=== PATIENT | male | born 1980 | race Caucasian/White ===

== ENCOUNTER 2024-11-08 06:50 | Inpatient (IN) | payer OTHER ==
[~2024-11-08] VITALS: Ht 185.4 cm; Wt 79.5 kg
[2024-11-08 07:54] LABS: PLATELET COUNT (AUTO) 266 K/uL (150-450); RED BLOOD CELL COUNT(AUTO) 4.80 MIL/uL (4.50-5.90); RED CELL DISTRIBUTION WIDTH 14.1 % (11.5-14.5); WHITE BLOOD COUNT (AUTO) 7.1 K/uL (4.5-11.0)
[2024-11-08 07:59] LABS: CALCIUM, TOTAL 9.5 mg/dL (8.8-10.5); CREATININE 0.78 mg/dL (0.60-1.30); GLOMERULAR FILTR. RATE CALC > 60 mL/min (>60); GLUCOSE,RANDOM 106 mg/dL (70-110); SODIUM SERUM 138 mmol/L (136-145); UREA NITROGEN, BLOOD 18 mg/dL (7-18)
[2024-11-08] MEDS: SODIUM CHLORIDE 0.9% 1,000 ML IV ONE (09:06)
[2024-11-08 10:37] LABS: APPEARANCE,URINE HAZY (CLEAR); GLUCOSE, URINE (UA) NEGATIVE (NEGATIVE); LEUKOCYTE ESTERASE ,URINE NEGATIVE (NEGATIVE); NITRATE,URINE NEGATIVE (NEGATIVE); OCCULT BLOOD,URINE NEGATIVE (NEGATIVE); PH,URINE DRUG SCREEN 7.5 (5.0-8.0); SPECIFIC GRAVITIY, URINE 1.032 (1.003-1.030)
[2024-11-08 10:38] LABS: ALCOHOL, URINE DRUG SCREEN NEGATIVE (NEGATIVE); AMPHET/METH SCREEN,URINE POSITIVE (NEGATIVE); BARBITURATE SCREEN, URINE NEGATIVE (NEGATIVE); CANNABINOID SCREEN,URINE NEGATIVE (NEGATIVE); COCAINE SCREEN,URINE NEGATIVE (NEGATIVE); METHADONE SCREEN, URINE NEGATIVE (NEGATIVE)
[2024-11-08 10:52] LABS: AMORPHOUS SEDIMENT,UR Few /LPF (None Seen); SQUAMOUS EPITHELIAL CELL,UR Few /LPF (None Seen)
[2024-11-08 12:00] VITALS: BP 123/79; PULSE 72; RESP 18; TEMP 97.8; O2SAT 99
[2024-11-08] MEDS: BUPRENORPHINE HCL/NALOXONE HCL 8-2 MG SUBLINGUAL TABLET SL ONE (13:20)
[2024-11-08] MEDS ORDERED: LOPERAMIDE HCL 2 MG CAPSULE PO PRN (14:15)
[2024-11-08] MEDS ORDERED: METOCLOPRAMIDE HCL 5 MG/ML 2 ML VIAL IVP PRN (14:15)
[2024-11-08] MEDS ORDERED: DICYCLOMINE HCL 10 MG CAPSULE PO PRN (14:15)
[2024-11-08 16:00] VITALS: BP 115/78; PULSE 66; RESP 18; TEMP 97.7; O2SAT 100
[2024-11-08 19:35] VITALS: BP 112/75; PULSE 72; RESP 18; TEMP 98.2; O2SAT 100
[2024-11-08] MEDS: TEMAZEPAM 15 MG CAPSULE PO SCH (20:45)
[2024-11-09 04:49] VITALS: BP 113/84; PULSE 68; RESP 18; TEMP 98.2; O2SAT 98
[2024-11-09 07:16] LABS: PLATELET COUNT (AUTO) 264 K/uL (150-450); RED BLOOD CELL COUNT(AUTO) 4.76 MIL/uL (4.50-5.90); RED CELL DISTRIBUTION WIDTH 14.5 % (11.5-14.5); WHITE BLOOD COUNT (AUTO) 7.4 K/uL (4.5-11.0)
[2024-11-09 07:29] LABS: CALCIUM, TOTAL 8.9 mg/dL (8.8-10.5); CREATININE 0.74 mg/dL (0.60-1.30); GLOMERULAR FILTR. RATE CALC > 60 mL/min (>60); GLUCOSE,RANDOM 91 mg/dL (70-110); SODIUM SERUM 141 mmol/L (136-145); UREA NITROGEN, BLOOD 17 mg/dL (7-18)
[2024-11-09 07:35] VITALS: BP 114/80; PULSE 67; RESP 18; TEMP 98.2; O2SAT 98
[2024-11-09 20:20] VITALS: BP 116/67; PULSE 65; RESP 18; TEMP 97.5; O2SAT 97
[2024-11-09] MEDS: LORazepam 2 MG/ML VIAL IVP PRN (20:24)
[2024-11-10 04:29] VITALS: BP 111/87; PULSE 70; RESP 16; TEMP 97.6; O2SAT 98
[2024-11-10 06:53] LABS: PLATELET COUNT (AUTO) 251 K/uL (150-450); RED BLOOD CELL COUNT(AUTO) 4.86 MIL/uL (4.50-5.90); RED CELL DISTRIBUTION WIDTH 14.2 % (11.5-14.5); WHITE BLOOD COUNT (AUTO) 7.1 K/uL (4.5-11.0)
[2024-11-10 07:03] LABS: CALCIUM, TOTAL 9.0 mg/dL (8.8-10.5); CREATININE 0.69 mg/dL (0.60-1.30); GLOMERULAR FILTR. RATE CALC > 60 mL/min (>60); GLUCOSE,RANDOM 94 mg/dL (70-110); SODIUM SERUM 137 mmol/L (136-145); UREA NITROGEN, BLOOD 18 mg/dL (7-18)
[2024-11-10 08:19] VITALS: BP 108/80; PULSE 68; RESP 18; TEMP 98.1; O2SAT 100
[2024-11-10 15:44] VITALS: BP 102/77; PULSE 75; RESP 18; TEMP 98.4; O2SAT 100
[2024-11-10 19:38] VITALS: BP 98/61; PULSE 88; RESP 18; TEMP 97.3; O2SAT 97
[2024-11-11 05:03] VITALS: BP 111/82; PULSE 68; RESP 18; TEMP 97.7; O2SAT 95
[2024-11-11 07:37] LABS: CALCIUM, TOTAL 8.7 mg/dL (8.8-10.5); CREATININE 0.82 mg/dL (0.60-1.30); GLOMERULAR FILTR. RATE CALC > 60 mL/min (>60); GLUCOSE,RANDOM 91 mg/dL (70-110); PLATELET COUNT (AUTO) 268 K/uL (150-450); RED BLOOD CELL COUNT(AUTO) 4.85 MIL/uL (4.50-5.90); RED CELL DISTRIBUTION WIDTH 14.2 % (11.5-14.5); SODIUM SERUM 139 mmol/L (136-145); UREA NITROGEN, BLOOD 14 mg/dL (7-18); WHITE BLOOD COUNT (AUTO) 6.8 K/uL (4.5-11.0)
[2024-11-11 08:16] VITALS: BP 116/81; PULSE 72; RESP 20; TEMP 97.7; O2SAT 98
[2024-11-11 16:25] VITALS: BP 109/73; PULSE 68; RESP 18; TEMP 98.1; O2SAT 98
[2024-11-11 19:41] VITALS: BP 105/73; PULSE 87; RESP 18; TEMP 98.1; O2SAT 97
[2024-11-12] MEDS: ZOLPIDEM TARTRATE 5 MG TABLET PO PRN (00:20)
[2024-11-12 04:18] VITALS: BP 103/71; PULSE 72; RESP 18; TEMP 97.3; O2SAT 98
[2024-11-12 09:03] VITALS: BP 119/75; PULSE 60; RESP 18; TEMP 98.2; O2SAT 95
== END 2024-11-12 20:30 | DRG 897 ==
LOC: EMS 06:52 → EDH 10:56 → 6S 12:00
PROVIDERS: ADMIT Internal Medicine; ATTEND Internal Medicine
DX: F11.23 Opioid dependence with withdrawal (principal); T40.415A Adverse effect of fentanyl or fentanyl analogs, initial encounter; F41.9 Anxiety disorder, unspecified; Y92.89 Other specified places as the place of occurrence of the external cause; Z88.1 Allergy status to other antibiotic agents
CPT/HCPCS: 71045; 80048; 80307; 81001; 85025; 93005; 96360; 96361; 99285; J2060; 36415-L1; 36415-TC